=== PATIENT | female | born 1970 | race African-American/Black ===

== ENCOUNTER → 2020-11-26 | Day surgery (SDC) | payer OTHER ==
[~2020-11-26] VITALS: Ht 185.4 cm; Wt 133.8 kg
[~2020-11-26] MED LIST: ACTOS15 MG PO; AMLODIPINE BESY10 MG PO; ASPIRIN EC81 MG PO; BENAZEPRIL HCL40 MG PO; FERREX 28 TABL1 EACH PO; GLIPIZIDE10 MG PO; HCTZ25 MG PO; PERCOCET 5-3251 EACH PO
[2020-11-26 06:49] LABS: HCT 41.7 % (37.0-47.0); MCH 22.6 pg (25.0-31.0); MCHC 31.2 g/dL (32.0-36.0); MCV 72.4 fL (78.0-100.0); MPV 10.1 fL (6.0-9.5); RBC 5.76 M/uL (4.20-5.40); RDW 15.7 % (11.5-14.0); WBC 10.4 K/uL (4.0-10.5)
[2020-11-26 07:11] LABS: ALBUMIN 3.4 g/dL (3.4-5.0); BILIRUBIN - TOTAL 0.4 mg/dL (0.2-1.0); BUN/CREAT RATIO (CALC) 16.5 RATIO; CREATININE 0.79 mg/dL (0.51-0.95); GLOBULIN (CALCULATION) 4.7 g/dL; POTASSIUM 3.8 mmol/L (3.5-5.1); TOTAL PROTEIN 8.1 g/dL (6.4-8.2)
== END | disposition home or self-care (01) ==
LOC: FAS 06:04
PROVIDERS: Orthopaedic Surgery
DX: M25.812 Other specified joint disorders, left shoulder (principal); M19.012 Primary osteoarthritis, left shoulder; M75.52 Bursitis of left shoulder; M75.112 Incomplete rotator cuff tear or rupture of left shoulder, not specified as traumatic; E11.9 Type 2 diabetes mellitus without complications; F17.210 Nicotine dependence, cigarettes, uncomplicated; I10 Essential (primary) hypertension; K21.9 Gastro-esophageal reflux disease without esophagitis; Z86.73 Personal history of transient ischemic attack (TIA), and cerebral infarction without residual deficits; Z79.82 Long term (current) use of aspirin; Z79.84 Long term (current) use of oral hypoglycemic drugs; Z79.899 Other long term (current) drug therapy; Z91.041 Radiographic dye allergy status
CPT/HCPCS: 36415; 71045; 80053; 82962; 93005; J0171; J0690; J1100; J2250; J2405; J2704; J2795; J3010; J7120